=== PATIENT | female | born 1940 | race Caucasian/White ===

== ENCOUNTER 2021-05-06 09:42 | Outpatient (RCR) | payer MEDICARE, SELFPAY ==
[2021-05-06 10:01] VITALS: BP 122/80; PULSE 78; O2SAT 95
== END 2021-09-20 09:40 | disposition home or self-care (01) ==
LOC: HO.PTWFD 09:42
PROVIDERS: PCP Internal Medicine; Visit Provider Internal Medicine
DX: H81.10 Benign paroxysmal vertigo, unspecified ear (principal)
CPT/HCPCS: 95992; 97161